=== PATIENT | female | born 1995 | race African-American/Black ===

== ENCOUNTER 2017-09-02 18:51 | Inpatient (IN) | payer MEDICAID ==
[2017-09-02] VITALS (12 sets, daily range): BP systolic 125–138; BP diastolic 82–100; PULSE 85–105; RESP 18
[2017-09-02] MEDS ORDERED: ONDANSETRON HCL 4 MG/2 ML VIAL IV PUSH ONE (20:00)
[2017-09-02] MEDS ORDERED: LACTATED RINGER'S 1000 ML INJ 1,000 ML IV SCH (20:00)
--- NOTE | 2017-09-02 20:06 | PD ---
HPI Chief Complaint Blood pressure elevated , nausea and vomiting, crampy pain Date Seen: Sep 02, 2017 Time Seen: 19:55 Travel History International Travel<30 Days: No Contact w/Intl Traveler<30Days: No Known Affected Area: No History of Present Illness HPI Patient is a 22-year-old white female at 38 weeks is unregistered to our system discussed with Dr. Lopez in the [employer] system, she is from [place] and just moved here recently is only seen Dr. Lopez once a month she was not feeling well today her blood pressure was elevated somewhat. She states she's been having high blood pressure over the last couple of weeks of that's just slowly gotten higher. The inferior most her she had no high blood pressure problems. She states that with her last she did the same thing a blood pressure increase slowly toward the end of that she had be induced for high blood pressure and that resulted in vaginal delivery. Here tonight or her blood pressures 130s over 90s, heart rate is reactive with good accelerations, she is jourdan every 2-3 minutes and she feels them but are not very painful Weeks Gestation: 38 Para: 1 : 2 History Obstetric History Obstetric History Patient one vaginal delivery last . She had elevated blood pressures in the and was induced for same Social History Alcohol Use: No Tobacco Use: No Substance Abuse: No Allergies-Medications (Allergen,Severity, Reaction): Coded Allergies: No Known Allergies (Unverified , 09/02/17) Review of Systems General / Constitutional: No: Fever, Weight Gain, Chills, Other Eyes: No: Diploplia, Blurred Vision, Visual changes, Pain, Photophobia HENT: No: Headaches, Vertigo, Lightheadedness Cardiovascular: No: Irregular Rhythm, Chest Pain or Discomfort, Palpitations, Tachycardia, Syncope, Varicosities, Edema, Cyanosis Respiratory: No: Cough, Short of Breath, Other Gastrointestinal: Nausea, Vomiting, No: Diarrhea Genitourinary: No: Decreased Urinary Output, Oliguria Musculoskeletal: No: Limited ROM, Weakness, Cramping, Edema, Pain Skin: No Rash, No Itching, No Dryness, No Lumps, No Change in Pigmentation, No Change in Nails, No Alopecia, No Lesions Neurologic: No: Weakness, Dizziness, Syncope, Focal Abnormalities, Coordination Problem, Headache, Slurred Speech, Seizures Psychiatric: No: Depression, Suicidal Ideations, Homicidal Ideation Endocrine: No: Heat Intolerance, Cold Intolerance, Polydipsia, Polyuria, Other Physical Exam Narrative GENERAL: Well-nourished, well-developed patient. SKIN: Warm and dry. HEAD: Normocephalic and atraumatic. EYES: No scleral icterus. No injection or drainage. ENT: No nasal drainage noted. Mucous membranes pink. Airway patent. NECK: Supple, trachea midline. No JVD. CARDIOVASCULAR: Regular rate and rhythm without murmurs, gallops, or rubs. RESPIRATORY: Breath sounds equal bilaterally. No accessory muscle use. BREASTS: Bilateral exam showed no masses , no retractions, no nipple discharge. ABDOMEN/GI: Abdomen soft, non-tender, bowel sounds present, no rebound, no guarding Gravid to [-38] weeks size Fundal Height: [38-] GENITOURINARY: External Genitalia: intact and normal in appearance BUS glands: [-] Cervix: [-]post Dilatation: [1-2-] Effacement: [-30] Station: [-3] Presentation: [-vtx] Membranes: [intact ] Uterine Contractions: [-q3 min] FHT's: Category: [1-] Baseline: [-133] Reactive: [-yes] Variability: [mod-] Decels: [-0] EXTREMITIES: No cyanosis or edema. BACK: Nontender without obvious deformity. No CVA tenderness. NEUROLOGICAL: Awake and alert. Motor and sensory grossly within normal limits. Five out of 5 muscle strength in all muscle groups. Normal speech. Data Data Orders Orders Cbc No Diff, Includes Plts (09/02/17 19:48) Comprehensive Metabolic Panel (09/02/17 19:48) Uric Acid (09/02/17 19:48) Urinalysis - C+S If Indicated (09/02/17 19:48) Vital Signs (Adult) .ON ADMISSION (09/02/17 19:57) ^ Labor Status (09/02/17 19:57) Lactated Ringer's 1000 Ml Inj (Lr 1000 M (09/02/17 19:57) Ondansetron Inj (Zofran Inj) (09/02/17 20:00) Labs urine dip neg protein Laboratory Tests Test 09/02/17 19:15 MDM Interpretation(s) Patient is 22-year-old white female 38 weeks who presents with borderline high blood pressures 130s / 90s, negative proteinuria in the urine, and PIH lab within normal limits. Also had nausea and vomiting crampy pains through the day. She is jourdan some cervix is unchanged from recent exam. heart rate tracing is reactive. Due to nausea vomiting she's given a liter of IV fluid and Zofran IV Diagnosis Diagnosis: Primary Impression: Hypertension affecting in third trimester Additional Impressions: Nausea and vomiting during Uterine contractions during David Patterson II, MD Sep 02, 2017 20:06
[2017-09-02 20:22] LABS: BACTERIA, URINE RARE /hpf; BLOOD, URINE NEG (NEG); COMMENT (UR) CULT NOT INDICATED; CULTURE IF INDICATED CULT NOT INDICATED; GLUCOSE,URINE NEG (NEG); KETONE, URINE NEG (NEG); NITRITE,URINE NEG (NEG); PH, URINE 6.5 (5.0-8.5); SQUAMOUS EPITHELIAL CELL URINE <1 /hpf (0-5); URINE COLOR COLORLESS (YELLW/STRAW)
[2017-09-02 20:38] LABS: HEMATOCRIT 35.8 % (35.0-46.0); MEAN CELL VOLUME 84.3 FL (80.0-100.0); MEAN CORPUSCULAR HGB CONC 33.2 % (32.0-36.0); PLATELET COUNT 290 TH/MM3 (150-450); RED BLOOD COUNT 4.25 MIL/MM3 (4.00-5.30); RED CELL DISTRIBUTION WIDTH 14.2 % (11.6-17.2); WHITE BLOOD COUNT 16.5 TH/MM3 (4.0-11.0)
[2017-09-02 20:54] LABS: ALT (GPT) 34 U/L (10-53)
[2017-09-02 20:56] LABS: ALKALINE PHOSPHATASE 299 U/L (45-117); TOTAL BILIRUBIN ADULT 0.3 MG/DL (0.2-1.0)
[2017-09-02 21:02] LABS: ANION GAP 11 MEQ/L (5-15); AST (GOT) 45 U/L (15-37); BICARBONATE 20.5 MEQ/L (21.0-32.0); BLOOD UREA NITROGEN 6 MG/DL (7-18); CHLORIDE 105 MEQ/L (98-107); GLOMERULAR FILTRATION RATE 175 ML/MIN (>89); POTASSIUM 4.2 MEQ/L (3.5-5.1); SODIUM (NA) 136 MEQ/L (136-145); URIC ACID 4.6 MG/DL (2.6-6.0)
[2017-09-02 21:11] LABS: REVIEW FLAG FINAL
[2017-09-02] MEDS: LACTATED RINGER'S 1000 ML INJ 1,000 ML IV SCH (21:38)
[2017-09-02] MEDS ORDERED: LACTATED RINGER'S 1000 ML INJ 1,000 ML IV PRN (21:38)
--- NOTE | 2017-09-02 21:42 | HHI.HP ---
History & Physical H&P Patient Name: Karma Rodriguez Unit Number: [id number] Date of : 1995 Patient Status: Registered Emergency Room Attending Doctor: David Patterson II, MD HPI HPI Chief Complaint Blood pressure elevated , nausea and vomiting, crampy pain Date Seen: Sep 02, 2017 Time Seen: 19:55 Travel History International Travel<30 Days: No Contact w/Intl Traveler<30Days: No Known Affected Area: No History of Present Illness HPI Patient is a 22-year-old white female at 38 weeks is unregistered to our system discussed with Dr. Lopez in the [employer] system, she is from [place] and just moved here recently is only seen Dr. Lopez once a month she was not feeling well today her blood pressure was elevated somewhat. She states she's been having high blood pressure over the last couple of weeks of that's just slowly gotten higher. The inferior most her she had no high blood pressure problems. She states that with her last she did the same thing a blood pressure increase slowly toward the end of that she had be induced for high blood pressure and that resulted in vaginal delivery. Here tonight or her blood pressures 130s over 90s, heart rate is reactive with good accelerations, she is jourdan every 2-3 minutes and she feels them but are not very painful Weeks Gestation: 38 Para: 1 : 2 History (Limited) History Obstetric History Obstetric History Patient one vaginal delivery last . She had elevated blood pressures in the and was induced for same Social History Alcohol Use: No Tobacco Use: No Substance Abuse: No Allergies-Medications Allergies-Medications (Allergen,Severity, Reaction): Coded Allergies: No Known Allergies (Unverified , 09/02/17) ROS Review of Systems General / Constitutional: No: Fever, Weight Gain, Chills, Other Eyes: No: Diploplia, Blurred Vision, Visual changes, Pain, Photophobia HENT: No: Headaches, Vertigo, Lightheadedness Cardiovascular: No: Irregular Rhythm, Chest Pain or Discomfort, Palpitations, Tachycardia, Syncope, Varicosities, Edema, Cyanosis Respiratory: No: Cough, Short of Breath, Other Gastrointestinal: Nausea, Vomiting, No: Diarrhea Genitourinary: No: Decreased Urinary Output, Oliguria Musculoskeletal: No: Limited ROM, Weakness, Cramping, Edema, Pain Skin: No Rash, No Itching, No Dryness, No Lumps, No Change in Pigmentation, No Change in Nails, No Alopecia, No Lesions Neurologic: No: Weakness, Dizziness, Syncope, Focal Abnormalities, Coordination Problem, Headache, Slurred Speech, Seizures Psychiatric: No: Depression, Suicidal Ideations, Homicidal Ideation Endocrine: No: Heat Intolerance, Cold Intolerance, Polydipsia, Polyuria, Other Physical Exam Physical Exam Narrative GENERAL: Well-nourished, well-developed patient. SKIN: Warm and dry. HEAD: Normocephalic and atraumatic. EYES: No scleral icterus. No injection or drainage. ENT: No nasal drainage noted. Mucous membranes pink. Airway patent. NECK: Supple, trachea midline. No JVD. CARDIOVASCULAR: Regular rate and rhythm without murmurs, gallops, or rubs. RESPIRATORY: Breath sounds equal bilaterally. No accessory muscle use. BREASTS: Bilateral exam showed no masses , no retractions, no nipple discharge. ABDOMEN/GI: Abdomen soft, non-tender, bowel sounds present, no rebound, no guarding Gravid to [-38] weeks size Fundal Height: [38-] GENITOURINARY: External Genitalia: intact and normal in appearance BUS glands: [-] Cervix: [-]post Dilatation: [1-2-] Effacement: [-30] Station: [-3] Presentation: [-vtx] Membranes: [intact ] Uterine Contractions: [-q3 min] FHT's: Category: [1-] Baseline: [-133] Reactive: [-yes] Variability: [mod-] Decels: [-0] EXTREMITIES: No cyanosis or edema. BACK: Nontender without obvious deformity. No CVA tenderness. NEUROLOGICAL: Awake and alert. Motor and sensory grossly within normal limits. Five out of 5 muscle strength in all muscle groups. Normal speech. Data Data Data Orders Orders Cbc No Diff, Includes Plts (09/02/17 19:48) Comprehensive Metabolic Panel (09/02/17 19:48) Uric Acid (09/02/17 19:48) Urinalysis - C+S If Indicated (09/02/17 19:48) Vital Signs (Adult) .ON ADMISSION (09/02/17 19:57) ^ Labor Status (09/02/17 19:57) Lactated Ringer's 1000 Ml Inj (Lr 1000 M (09/02/17 19:57) Ondansetron Inj (Zofran Inj) (09/02/17 20:00) Labs urine dip neg protein Laboratory Tests Test 09/02/17 19:15 [facility] MDM Interpretation(s) Patient is 22-year-old white female 38 weeks who presents with borderline high blood pressures 130s / 90s, negative proteinuria in the urine, and PIH lab showed slightly elevated liver functions. Also had nausea and vomiting crampy pains through the day. She is jourdan some cervix is unchanged from recent exam. heart rate tracing is reactive. Due to nausea vomiting she's given a liter of IV fluid and Zofran IV Diagnosis Diagnosis: Primary Impression: Hypertension affecting in third trimester Additional Impressions: Nausea and vomiting during Uterine contractions during Plan-- Admit for labor induction due to PIH with liver function elevation David Patterson II, MD Sep 02, 2017 20:06 David Patterson II, MD Sep 02, 2017 21:42
[2017-09-02] MEDS ORDERED: MINERAL OIL 10 ML VIAL TOPICAL PRN (21:45)
[2017-09-02] MEDS ORDERED: LIDOCAINE HCL 1% 50 ML VIAL I-DERMAL PRN (21:45)
[2017-09-02] MEDS ORDERED: LIDOCAINE HCL 1% 50 ML VIAL INFIL PRN (21:45)
[2017-09-02] MEDS ORDERED: SODIUM CHLORIDE 0.9% FLUSH 10 ML FLUSH IV FLUSH PRN (21:45)
[2017-09-02] MEDS ORDERED: CITRIC ACID-SODIUM CITRATE LIQ 30 ML UDC PO SCH (21:45)
[2017-09-02] MEDS ORDERED: OXYTOCIN 30 UNITS-500ML PREMIX 500 ML IV ONE (21:45)
[2017-09-02] MEDS ORDERED: SODIUM CHLORID 0.9% 500 ML INJ 500 ML IV PRN (21:45)
[2017-09-02] MEDS ORDERED: SODIUM CHLOR 0.9% 1000 ML INJ 1,000 ML IV PRN (21:58)
[2017-09-03] VITALS (91 sets, daily range): BP systolic 112–156; BP diastolic 68–117; PULSE 70–128; RESP 16–18; TEMP 97.9–98.3; O2SAT 96–98
[2017-09-03] MEDS: MISOPROSTOL 25 MCG SUPP VAGINAL SCH ×2 (04:36)
[2017-09-03] MEDS ORDERED: ePHEDrine/NS 25 MG/5 ML SYR ONE (05:09)
[2017-09-03] MEDS ORDERED: fentaNYL 2MCG-BUPIV 0.125% INJ 100 ML ONE ×2 (05:09→09:31)
[2017-09-03] MEDS: LACTATED RINGER'S 1000 ML INJ 1,000 ML IV SCH ×2 (05:38→10:02)
[2017-09-03] MEDS ORDERED: SODIUM CHLORIDE 0.9% FLUSH 10 ML FLUSH IV FLUSH SCH (09:00)
[2017-09-03] MEDS ORDERED: NO SYSTEM NARCOTICS PRN (11:00)
[2017-09-03] MEDS ORDERED: ePHEDrine/NS 25 MG/5 ML SYR IV PUSH PRN (11:00)
[2017-09-03] MEDS ORDERED: fentaNYL 2MCG-BUPIV 0.125% 100 ML EPIDURAL SCH (11:00)
[2017-09-03] MEDS ORDERED: DO NOT ADMINISTER ANTICOAGULANTS PRN (11:00)
[2017-09-03] MEDS ORDERED: OXYTOCIN 30 UNITS-500ML PREMIX 500 ML ONE (14:09)
[2017-09-03] MEDS ORDERED: ZOLPIDEM TARTRATE 5 MG TAB PO PRN (14:30)
[2017-09-03] MEDS ORDERED: DOCUSATE SODIUM 50 MG/SENNA 8.6 MG TAB PO PRN (14:30)
[2017-09-03] MEDS ORDERED: WITCH HAZEL 50%/GLYCERIN 12.5% 40 PAD JAR TOPICAL PRN (14:30)
[2017-09-03] MEDS ORDERED: ALUMINUM/MAGNESIUM/SIMETH 30 ML CUP PO PRN (14:30)
[2017-09-03] MEDS ORDERED: BENZOCAINE 20% TOPICAL SPRAY 60 ML CAN TOPICAL PRN (14:30)
[2017-09-03] MEDS ORDERED: oxyCODONE/ACETAMINOPHEN 5 MG/325 MG TAB PO PRN ×2 (14:30)
[2017-09-03] MEDS ORDERED: ONDANSETRON ODT 4 MG TAB PO PRN (14:30)
[2017-09-03] MEDS ORDERED: SODIUM CHLORIDE 0.9% FLUSH 10 ML FLUSH IV FLUSH PRN (14:30)
[2017-09-03] MEDS ORDERED: ACETAMINOPHEN 325 MG TAB PO PRN (14:30)
[2017-09-03] MEDS ORDERED: OXYTOCIN 30 UNITS-500ML PREMIX 500 ML IV SCH (14:30)
--- NOTE | 2017-09-03 14:40 | PD.OB.DELI ---
Weeks gestation: 38 Gest age assessed date: Sep 03, 2017 Gest age assessed time: 14:00 Pt started active labor?: Yes Active labor start date: Sep 03, 2017 Active labor start time: 08:57 Medical induction of labor?: No Artificial rupture of membrane: Yes Artificial ROM date: Sep 03, 2017 Artifical ROM time: 08:57 Anesthesia: Epidural Episiotomy: None Vaginal Delivery: Normal Presentation: Occiput anterior Nuchal Cord: None Delayed cord clamping (45 sec): Yes Infant: Female, Single Delivery date: Sep 03, 2017 Delivery time: 14:18 One Minute : 8 Five Minute : 9 Placenta: Spontaneous delivery, Intact, 3 vessel cord Laceration: No lacerations Estimated blood loss: 200 Additional Information Head delivered by maternal effort. Anterior shoulder delivered without complications. Minimal bleeding and an uncomplicated delivery. No lacerations Jim Cook MD R1 Sep 03, 2017 14:40
--- NOTE | 2017-09-03 15:20 | HHI.PR ---
Subjective Remarks The patient progressed to complete/complete/+2. The patient commenced spontaneous maternal expulsive efforts with excellent descent of the vertex. The vertex delivered atraumatically followed by atraumatic spontaneous delivery of the anterior shoulder and remainder of the . The was vigorous at delivery and placed on the maternal abdomen where after delivery the cord was clamped as appropriate. She had reassuring heart tones throughout. The placenta was delivered spontaneously and appeared to be intact. Apgars were 8 and 9. Both mother and are doing well. No lacerations were noted. I was present, scrubbed for, and attended the entire delivery. Objective Vital Signs Date Time Temp Pulse Resp B/P (MAP) Pulse Ox O2 Delivery O2 Flow Rate FiO2 09/03/17 15:10 16 09/03/17 15:00 93 132/86 (101) 09/03/17 14:55 16 09/03/17 14:45 111 142/88 (106) 09/03/17 14:40 18 09/03/17 14:37 103 136/94 (108) 09/03/17 14:36 128 119/105 (110) 09/03/17 14:32 106 125/76 (92) 09/03/17 14:30 125 134/117 (123) 09/03/17 14:25 16 09/03/17 14:20 92 96 09/03/17 14:15 99 98 09/03/17 14:15 18 09/03/17 14:10 97 09/03/17 14:05 72 09/03/17 14:00 83 138/102 (114) 09/03/17 14:00 18 09/03/17 13:55 89 09/03/17 13:50 82 09/03/17 13:46 98.3 09/03/17 13:45 78 09/03/17 13:40 83 09/03/17 13:35 83 09/03/17 13:30 76 09/03/17 13:30 81 132/95 (107) 09/03/17 13:25 79 09/03/17 13:20 78 09/03/17 13:15 101 09/03/17 13:10 80 09/03/17 13:05 98 09/03/17 13:00 107 16 133/78 (96) 09/03/17 13:00 95 09/03/17 12:55 94 09/03/17 12:50 93 09/03/17 12:45 97 09/03/17 12:40 101 09/03/17 12:35 98 09/03/17 12:30 98.0 16 09/03/17 12:30 97 09/03/17 12:30 93 117/78 (91) 09/03/17 12:25 93 09/03/17 12:20 108 09/03/17 12:15 86 09/03/17 12:10 80 09/03/17 12:05 75 09/03/17 12:01 76 114/80 (91) 09/03/17 12:00 86 09/03/17 11:55 78 09/03/17 11:50 76 09/03/17 11:45 81 09/03/17 11:40 73 09/03/17 11:35 84 09/03/17 11:30 93 140/98 (112) 09/03/17 11:30 91 09/03/17 11:25 100 09/03/17 11:20 90 09/03/17 11:15 95 09/03/17 11:10 93 09/03/17 11:05 89 09/03/17 11:00 90 131/82 (98) 09/03/17 11:00 77 09/03/17 10:55 101 09/03/17 10:50 90 09/03/17 10:45 88 09/03/17 10:40 93 09/03/17 10:35 106 09/03/17 10:30 86 129/85 (100) 09/03/17 10:30 98.2 09/03/17 10:30 86 17 10:25 87 17 10:20 92 09/03/17 10:15 87 09/03/17 10:15 88 113/73 (86) 09/03/17 10:14 16 09/03/17 10:10 88 17 10:10 91 112/81 (91) 09/03/17 10:05 92 116/82 (93) 09/03/17 10:05 97 09/03/17 10:00 93 09/03/17 10:00 96 16 114/68 (83) 11/16/17 09:55 92 09/03/17 09:55 92 115/82 (93) 09/03/17 09:50 78 09/03/17 09:50 100 117/81 (93) 09/03/17 09:47 94 136/98 (111) 09/03/17 09:45 87 09/03/17 09:40 91 09/03/17 09:00 77 133/92 (106) 09/03/17 08:00 78 16 125/94 (104) 09/03/17 07:30 16 09/03/17 07:00 70 118/96 (103) 09/03/17 06:00 88 125/89 (101) 09/03/17 05:00 78 130/91 (104) 09/03/17 04:00 100 119/77 (91) 09/03/17 03:00 84 132/82 (99) 09/03/17 02:00 84 131/91 (104) 09/03/17 01:45 16 09/03/17 01:38 93 116/75 (89) 09/03/17 01:38 98.0 09/03/17 00:30 16 09/03/17 00:20 95 136/92 (107) 09/02/17 23:00 18 09/02/17 22:30 18 09/02/17 22:01 89 138/82 (100) 09/02/17 22:00 18 09/02/17 21:45 98 138/100 (113) 09/02/17 21:30 89 133/84 (100) 09/02/17 21:30 18 09/02/17 21:15 85 131/89 (103) 09/02/17 21:00 18 09/02/17 21:00 105 129/88 (102) 09/02/17 20:45 90 131/87 (102) 09/02/17 20:30 18 09/02/17 20:30 104 125/83 (97) 09/02/17 20:15 97 132/96 (108) 09/02/17 20:00 18 Result Diagram: 09/02/17200909/02/172009 Diana Kessler MD Sep 03, 2017 15:20
[2017-09-03] MEDS ORDERED: MEASLES, MUMPS, RUBELLA VACCINE 0.5 ML VIAL SQ ONE (16:00)
[2017-09-03] MEDS ORDERED: DIPHTH/TETANUS/ACEL PERTUSSIS (BOOSTER) 0.5 ML VIAL/PFS IM ONE (16:00)
[2017-09-04] MEDS: IBUPROFEN 800 MG TAB PO PRN ×2 (03:53→16:22)
--- NOTE | 2017-09-04 08:35 | HHI.OB ---
Subjective Remarks Patient is a 22-year-old delivered at 38 weeks and 2 days. Patient is day 1 after NVD. Patient's pain is well-controlled. Patient reports eating and drinking without any nausea or vomiting. Patient reports minimal bleeding. Patient has passed gas but no bowel movements. Patient is walking without lower extremity pain or shortness of breath. Patient does not desire contraception at this time and plans to formula feed. Objective Vitals/I&O Vital Signs Date Time Temp Pulse Resp B/P (MAP) Pulse Ox O2 Delivery O2 Flow Rate FiO2 09/03/17 20:55 97.9 79 18 121/84 (96) 09/03/17 18:58 78 130/88 (102) 09/03/17 17:40 156/96 (116) 09/03/17 17:40 136/101 (113) 09/03/17 16:42 126/92 (103) 09/03/17 16:35 98.0 98 16 145/97 (113) 98 09/03/17 16:35 88 09/03/17 15:40 98.3 18 09/03/17 15:31 88 130/98 (109) 09/03/17 15:15 77 131/85 (100) 09/03/17 15:10 16 09/03/17 15:00 93 132/86 (101) 09/03/17 14:55 16 09/03/17 14:45 111 142/88 (106) 09/03/17 14:40 18 09/03/17 14:37 103 136/94 (108) 09/03/17 14:36 128 119/105 (110) 09/03/17 14:32 106 125/76 (92) 09/03/17 14:30 125 134/117 (123) 09/03/17 14:25 16 09/03/17 14:20 92 96 09/03/17 14:15 99 98 09/03/17 14:15 18 09/03/17 14:10 97 09/03/17 14:05 72 09/03/17 14:00 83 138/102 (114) 09/03/17 14:00 18 09/03/17 13:55 89 09/03/17 13:50 82 09/03/17 13:46 98.3 09/03/17 13:45 78 11/16/17 13:40 83 1617 13:35 83 1617 13:30 76 1617 13:30 81 132/95 (107) 17 13:25 79 17 13:20 78 1617 13:15 101 17 13:10 80 17 13:05 98 17 13:00 107 16 133/78 (96) 09/03/17 13:00 95 17 12:55 94 17 12:50 93 17 12:45 97 17 12:40 101 17 12:35 98 17 12:30 98.0 16 09/03/17 12:30 97 17 12:30 93 117/78 (91) 09/03/17 12:25 93 17 12:20 108 09/03/17 12:15 86 09/03/17 12:10 80 09/03/17 12:05 75 09/03/17 12:01 76 114/80 (91) 09/03/17 12:00 86 17 11:55 78 09/03/17 11:50 76 17 11:45 81 17 11:40 73 17 11:35 84 17 11:30 93 140/98 (112) 09/03/17 11:30 91 17 11:25 100 17 11:20 90 17 11:15 95 17 11:10 93 17 11:05 89 17 11:00 90 131/82 (98) 09/03/17 11:00 77 17 10:55 101 17 10:50 90 09/03/17 10:45 88 09/03/17 10:40 93 16/17 10:35 106 16/17 10:30 86 129/85 (100) 17 10:30 98.2 17 10:30 86 16/17 10:25 87 16/17 10:20 92 11/16/17 10:15 87 11/16/17 10:15 88 113/73 (86) 09/03/17 10:14 16 09/03/17 10:10 88 09/03/17 10:10 91 112/81 (91) 09/03/17 10:05 92 116/82 (93) 09/03/17 10:05 97 09/03/17 10:00 93 09/03/17 10:00 96 16 114/68 (83) 09/03/17 09:55 92 09/03/17 09:55 92 115/82 (93) 09/03/17 09:50 78 09/03/17 09:50 100 117/81 (93) 09/03/17 09:47 94 136/98 (111) 09/03/17 09:45 87 09/03/17 09:40 91 09/03/17 09:00 77 133/92 (106) Objective Remarks GENERAL: Well-nourished, well-developed patient. CARDIOVASCULAR: Regular rate and rhythm without murmurs, gallops, or rubs. RESPIRATORY: Breath sounds equal bilaterally. No accessory muscle use. ABDOMEN/GI: Abdomen soft, non-tender. Fundus: Firm, non-tender at umbilicus. GENITOURINARY: Light to moderate bleeding. EXTREMITIES: No cyanosis or edema, non-tender, without signs of DVT. Medications and IVs Current Medications Medications (Trade) Dose Ordered Sig/Denia Route Start Time Stop Time Status Last Admin (NS Flush) 2 ml BID IV FLUSH 09/03/17 09:00 (NS Flush) 2 ml UNSCH PRN IV FLUSH 09/02/17 21:45 (Cytotec Supp) 25 mcg Q4HR VAGINAL 09/03/17 00:00 09/03/17 04:36 Miscellaneous Information No systemic narcotics to be given except... UNSCH PRN .XX 09/03/17 11:00 09/04/17 10:59 Miscellaneous Information DO NOT ADMINISTER ANY ANTICOAGUL... UNSCH PRN .XX 09/03/17 11:00 09/04/17 10:59 Fentanyl/ Bupivacaine HCl 100 ml @ 0 mls/hr TITRATE EPIDURAL 09/03/17 11:00 (ePHEDrine/NS 25 MG/5 ML SYR) 10 mg UNSCH PRN IV PUSH 09/03/17 11:00 09/04/17 10:59 (NS Flush) 2 ml BID IV FLUSH 09/03/17 21:00 (NS Flush) 2 ml UNSCH PRN IV FLUSH 09/03/17 14:30 (Tylenol) 650 mg Q4H PRN PO 09/03/17 14:30 (Motrin) 800 mg Q8H PRN PO 09/03/17 14:30 09/04/17 03:53 (Percocet 5-325 Mg) 1 tab Q4H PRN PO 09/03/17 14:30 (Percocet 5-325 Mg) 2 tab Q4H PRN PO 09/03/17 14:30 (Americaine 20% Top Spr) 1 spray Q4H PRN TOPICAL 09/03/17 14:30 (Tucks Pads) 1 applic QID PRN TOPICAL 09/03/17 14:30 (Amaya-Colace) 2 tab Q12H PRN PO 09/03/17 14:30 (Ambien) 5 mg HS PRN PO 09/03/17 14:30 (Mag-Al Plus Susp Liq) 15 ml Q8H PRN PO 09/03/17 14:30 (Zofran Odt) 4 mg Q6H PRN PO 09/03/17 14:30 Assessment/Plan Problem List: (1) (spontaneous vaginal delivery) ICD Codes: O80 - Encounter for full-term uncomplicated delivery Assessment and Plan Patient is a 22-year-old delivered at 38 weeks and 2 days. Patient is day 1 after NVD. Patient was counseled to do 6 weeks of pelvic rest. Patient was counseled to follow up in 6 weeks. Patient requested follow-up and does not desire contraception. --AF VSS --Continue routine care --Motrin and Percocet when necessary for pain --Encourage OOB --Pelvic rest for 6 weeks will need follow-up appointment at that time. --Contraception: Does not desire at this time. We'll consider at her 6 week follow-up --Anticipate discharge tomorrow Discussed with Jim Blackmon MD R1 Sep 04, 2017 08:35
[2017-09-04 08:55] VITALS: BP 123/89; PULSE 85; RESP 18; TEMP 97.3; O2SAT 98
[2017-09-04] MEDS: SODIUM CHLORIDE 0.9% FLUSH 10 ML FLUSH IV FLUSH SCH (16:13)
[2017-09-04 19:35] VITALS: BP 142/90; PULSE 86; RESP 18; TEMP 97.6; O2SAT 98
[2017-09-05] MEDS: IBUPROFEN 800 MG TAB PO PRN (04:19)
[2017-09-05 08:00] VITALS: BP 128/89; PULSE 67; RESP 18; TEMP 97.6; O2SAT 98
[2017-09-05] MEDS: MISOPROSTOL 25 MCG SUPP VAGINAL SCH (08:00)
--- NOTE | 2017-09-05 08:56 | HHI.OB ---
Subjective Post Day: 2 Remarks Patient is a 22-year-old at 38 weeks and 2 days who is day 2 after normal vaginal delivery. Patient's pain is well-controlled. Patient reports eating and drinking without any nausea or vomiting. Patient reports minimal bleeding. Patient has passed gas but no bowel movements. Patient is walking without lower extremity pain or shortness of breath. Patient reports desire for contraception through her outpatient provider and breast-feeding. Objective Vitals/I&O Vital Signs Date Time Temp Pulse Resp B/P (MAP) Pulse Ox O2 Delivery O2 Flow Rate FiO2 09/04/17 19:35 97.6 86 18 98 09/04/17 19:35 142/90 (107) Objective Remarks GENERAL: Well-nourished, well-developed patient. CARDIOVASCULAR: Regular rate and rhythm without murmurs, gallops, or rubs. RESPIRATORY: Breath sounds equal bilaterally. No accessory muscle use. ABDOMEN/GI: Abdomen soft, non-tender. Fundus: Firm, non-tender at umbilicus. GENITOURINARY: Light to moderate bleeding. EXTREMITIES: No cyanosis or edema, non-tender, without signs of DVT. Medications and IVs Current Medications Medications (Trade) Dose Ordered Sig/Denia Route Start Time Stop Time Status Last Admin (NS Flush) 2 ml BID IV FLUSH 09/03/17 09:00 (NS Flush) 2 ml UNSCH PRN IV FLUSH 09/02/17 21:45 (Cytotec Supp) 25 mcg Q4HR VAGINAL 09/03/17 00:00 09/03/17 04:36 Fentanyl/ Bupivacaine HCl 100 ml @ 0 mls/hr TITRATE EPIDURAL 09/03/17 11:00 (NS Flush) 2 ml BID IV FLUSH 09/03/17 21:00 (NS Flush) 2 ml UNSCH PRN IV FLUSH 09/03/17 14:30 (Tylenol) 650 mg Q4H PRN PO 09/03/17 14:30 (Motrin) 800 mg Q8H PRN PO 09/03/17 14:30 09/05/17 04:19 (Percocet 5-325 Mg) 1 tab Q4H PRN PO 09/03/17 14:30 (Percocet 5-325 Mg) 2 tab Q4H PRN PO 11/16/17 14:30 (Americaine 20% Top Spr) 1 spray Q4H PRN TOPICAL 09/03/17 14:30 (Tucks Pads) 1 applic QID PRN TOPICAL 09/03/17 14:30 (Amaya-Colace) 2 tab Q12H PRN PO 09/03/17 14:30 (Ambien) 5 mg HS PRN PO 09/03/17 14:30 (Mag-Al Plus Susp Liq) 15 ml Q8H PRN PO 09/03/17 14:30 (Zofran Odt) 4 mg Q6H PRN PO 09/03/17 14:30 Assessment/Plan Problem List: (1) (spontaneous vaginal delivery) ICD Codes: O80 - Encounter for full-term uncomplicated delivery (2) Hypertension affecting in third trimester ICD Codes: O16.3 - Unspecified maternal hypertension, third trimester Status: Acute Assessment and Plan Patient is a 22-year-old delivered at 38 weeks and 2 days. Patient is day 2 after NVD. Patient was counseled to do 6 weeks of pelvic rest. Patient was counseled to follow up in 6 weeks. Patient requested follow-up and does not desire contraception. 1. Routine care --AF VSS --Continue routine care --Motrin and Percocet when necessary for pain --Encourage OOB --Pelvic rest for 6 weeks will need follow-up appointment at that time. --Contraception: Does not desire at this time. May reconsider at her 6 week follow-up with outpatient provider --Anticipate discharge tomorrow 2. Hypertension affecting --Blood pressures are stable --Follow up as an outpatient --Plan to discharge if LFTs are stable or improved/decreased Discussed with Dr. Patterson Discharge Planning Anticipate d/c today. Rony Zavala MD R2 Sep 05, 2017 08:56
[2017-09-05] MEDS ORDERED: IBUP1TAB7 PO (08:57)
[2017-09-05] MEDS ORDERED: ACET325T15 PO (08:57)
--- NOTE | 2017-09-05 08:57 | HHI.DCPOC ---
Discharge Care Plan Diagnosis: (1) (spontaneous vaginal delivery) Report Symptoms to Your Doctor -Temperature above 100.5 degrees -Redness, of incision or excessive or foul smelling drainage -Unusual pain or calf pain -Increased vaginal bleeding -Painful or difficulty urinating -Feelings of extreme sadness or anxiety after 2 weeks Goals to Promote Your Health * To prevent worsening of your condition and complications, please monitor your blood pressure closely. Please follow up with a doctor immediately for bp > 160/ 100. * To maintain your health at the optimal level, please follow-up with your doctor. Directions to Meet Your Goals Take your medications as prescribed Follow your dietary instruction Follow activity as directed Ensure plenty of rest for recovery Drink fluids for hydration Keep your appointments as scheduled Take your immunizations and boosters as scheduled If your symptoms worsen call your PCP, if no PCP go to Urgent Care Center or Emergency Room Smoking is Dangerous to Your Health. Avoid second hand smoke Call the 24-hour crisis hotline for domestic abuse at Rony Zavala MD R2 Sep 05, 2017 08:57
[2017-09-05] MEDS: SODIUM CHLORIDE 0.9% FLUSH 10 ML FLUSH IV FLUSH SCH (09:00)
[2017-09-05 11:04] LABS: ALKALINE PHOSPHATASE 239 U/L (45-117); ALT (GPT) 26 U/L (10-53); ANION GAP 8 MEQ/L (5-15); AST (GOT) 22 U/L (15-37); BLOOD UREA NITROGEN 5 MG/DL (7-18); CHLORIDE 104 MEQ/L (98-107); GLOMERULAR FILTRATION RATE 196 ML/MIN (>89); POTASSIUM 3.3 MEQ/L (3.5-5.1); SODIUM (NA) 138 MEQ/L (136-145); TOTAL BILIRUBIN ADULT 0.2 MG/DL (0.2-1.0)
== END 2017-09-05 11:55 | disposition home or self-care (01) | DRG 775 ==
LOC: HOBED 18:51 → H2EB 21:55 → H2EA 22:35 → H1EA 09-03 15:52
PROVIDERS: ADMIT Obstetrics & Gynecology Maternal & Fetal Medicine; ATTEND Obstetrics & Gynecology Maternal & Fetal Medicine
PROC: 10E0XZZ Delivery of Products of Conception, External Approach (ICD-10-PCS; principal; 2017-09-03)
PROC: 10907ZC Drainage of Amniotic Fluid, Therapeutic from Products of Conception, Via Natural or Artificial Opening (ICD-10-PCS; 2017-09-03)
DX: O13.4 Gestational [pregnancy-induced] hypertension without significant proteinuria, complicating childbirth (principal); R11.2 Nausea with vomiting, unspecified; Z3A.38 38 weeks gestation of pregnancy; Z37.0 Single live birth
CPT/HCPCS: 59025; 80053; 80307; 81001; 84550; 85027; 86900; 86901; 87081; 87150; 96361; 96374; J2405; J2590; J7120